=== PATIENT | female | born 1950 | race Caucasian/White ===

== ENCOUNTER 2024-02-01 18:48 | Inpatient (IN) ==
--- NOTE | 2024-02-01 19:10 | XRay Report ---
XR chest 1V portable HISTORY: Shortness of breath. Chest pain, nonspecific COMPARISON: Chest 12/22/2023. FINDINGS: There are low lung volumes. No pneumothorax. The cardiac silhouette remains mildly enlarged . There are suture material within the right upper lobe again noted. Thoracic spinal fusion hardware. Mild chronic interstitial thickening persists. No evidence for pulmonary edema. There are surgical c lips overlying the right hilum. Patchy bibasilar densities persist. IMPRESSION: 1. Stable cardiomegaly. 2. Postoperative changes again noted within the right lung. 3. Patchy bibasilar densities persist. This could represent scarring or atelectasis. A superimposed p neumonia would be difficult to exclude. ACT 112: Negative or not required by law. Electronically signed by: Imtiaz Dunn M.D. 02/01/2024 7:09 PM
[2024-02-01] MEDS: methylPREDNISolone 125 MG/2 ML VIAL IV STA ×3 (19:17→22:24)
[2024-02-01 19:22] LABS: iSTAT Creatinine 0.8 mg/dl (0.6-1.3); iSTAT Ionized Calcium 1.24 mmol/l (1.12-1.32); iSTAT Potassium 3.7 mmol/L (3.3-5.0)
[2024-02-01 19:25] LABS: Base Excess VBG 7.7 mEq/L; HCO3 VBG 38 mmol/L; Oxygen Saturation VBG < 60.0 %; PCO2 VBG 85 mmHg (38-50); PO2 VBG 27 mmHg; pH VBG 7.26 (7.36-7.41)
--- NOTE | 2024-02-01 19:28 | Emergency Department Note ---
Impression & Plan Acute hypoxic respiratory failure, Acute exacerbation of chronic obstructive airways disease, Rhinovirus ED Provider Note NAME: JO ANN UGARTE AGE: 73 SEX: F : 1950 ARRIVES VIA: Walk-In INFORMANT: Patient ED PROVIDER(S): Jesse Cerda DO CHIEF COMPLAINT: shortness of breath HPI: Patient is a 73-year-old female who presents to the ER for cough and congestion which started several days ago. She notes that it has been getting worse for the past 2 days. She has become more short of breath over the past two days. Family notes that she was a little confused on Saturday but that has resolved. She was significant more short of breath today and weak and consequently they brought her in. Patient does chronically wear oxygen. She denies any headache or change in vision. No chest pain but does admit to shortness of breath. No belly pain. No nausea, vomiting, or diarrhea. ADDITIONAL HISTORY OBTAINED: Per HPI Chronic Medical/Social Conditions Affecting Care: Per HPI PAST MEDICAL HISTORY:See Below PAST SURGICAL HISTORY:See Below FAMILY HISTORY:See Below SOCIAL HISTORY:See Below HOME MEDICATIONS:See Below ALLERGIES:See Below VITALS:See Below PHYSICAL EXAMINATION: GENERAL: Sitting up in bed, alert, ill-appearing, dyspneic with conversation EYE EXAM: normal conjunctiva. OROPHARYNX: no exudate, no erythema, lips, buccal mucosa, and tongue normal and mucous membranes are moist NECK: supple, no nuchal rigidity, no adenopathy, non-tender LUNGS: Wheezing bilaterally. Normal chest wall mechanics HEART: no murmurs, S1 normal and S2 normal ABDOMEN: abdomen soft, non-tender, normo-active bowel sounds, no masses, no rebound or guarding. UPPER EXTREMITIES: upper extremities are grossly normal. LOWER EXTREMITIES: No pitting edema. Calves are equal bilaterally NEURO EXAM: Normal sensorium, cranial nerves II-XII grossly intact, normal speech, no gross weakness of arms, no gross weakness of legs. MEDICAL DECISION MAKING: Patient is a 73-year-old female who presents ER brought in by family. Upon arrival she was found to be in respiratory distress was hypoxic with pulse ox in the 70s. She was brought in to be 1. Placed on BiPAP. IV was established blood work was obtained. Labs show no significant leukocytosis or anemia. VBG with a pH 7.26 and a CO2 85. BMP was fairly unremarkable. LFTs bilirubin was unremarkable. Troponin was negative. Pro-Alphonse normal. Viral panel was negative with exception of rhinovirus. She was covered with IV antibiotics including azithromycin and Rocephin and steroids. She improved on BiPAP. Case was discussed with the hospitalist admitted for further workup. Consults/Care Managements Discussions: Per [facility] Triage Nursing notes reviewed. Limited review of prior medical records performed Vital Signs: reviewed and remarkable for tachycardic and hypoxic Differential diagnosis: Differential diagnoses includes but is not limited to pneumonia, bronchitis, COPD/Asthma exacerbation, pneumothorax, pulmonary embolism, congestive heart failure, acute coronary syndrome ER treatment provided: See below Diagnostics interpreted by me include EKG and cardiac monitoring as listed below: -Cardiac Monitoring: An order was placed for continuous cardiac monitoring. The monitor shows a rate of 110 with sinus rhythm. -ECG: Sinus rhythm 4112 Normal axis No PVCs QTc 434 -Laboratory studies:Interpreted by me as stated above in MDM and shown below. Imaging studies: Xrays: As interpreted by me: Portable AP upright 1 view of the chest shows opacities in the bilateral bases CTs show: none Procedures:none Critical Care: I have personally spent 45 minutes of critical care time in the direct management of this patient. This includes bedside care, interpretation of diagnostic studies, and testing, discussion with consultants, patient, and family members, and other required patient management activities. This 45 minutes is in excess of all separately billable procedures. Past Med/Surg History Problem List (Updated 02/01/24 @ 22:15 by Jesse Cerda DO) Rhinovirus (Acute) Acute exacerbation of chronic obstructive airways disease (Acute) Acute hypoxic respiratory failure (Acute) Medical History (Updated 02/01/24 @ 22:15 by Jesse Cerda DO) Back pain, chronic Traumatic brain injury Lung cancer Surgical History (Updated 02/01/24 @ 19:23 by Bianca Bauer) History of lobectomy of lung Social History Smoking Status: Former smoker Preferred Language: Chinese Feels Safe at Home: Yes Allergies Allergies Allergy/AdvReac Type Severity Reaction Status Date / Time adhesive tape Allergy Mild Redness of Verified 02/01/24 19:35 Skin cyclobenzaprine Allergy Mild Blister Verified 02/01/24 19:35 [From Flexeril] amitriptyline [From avil] AdvReac Intermediate Hallucinati Verified 02/01/24 19:35 ng aspirin AdvReac Intermediate Abdominal Verified 02/01/24 19:35 Pain morphine AdvReac Intermediate Hallucinati Verified 02/01/24 19:35 ng Home Meds Home Medications Medication Instructions Recorded Confirmed Unknown Antibiotic 1 dose PO BID 02/01/24 02/01/24 acetaminophen 650 mg 650 - 1,300 mg PO DIRECTED PRN 02/01/24 02/01/24 tablet,extended release Pain albuterol sulfate 2.5 mg/3 mL 2.5 mg inhalation DIRECTED PRN 02/01/24 02/01/24 (0.083 %) solution for nebulization Shortness Of Breath Or Wheezing albuterol sulfate 90 mcg/actuation 2 puff inhalation .Q4-6HR PRN 02/01/24 02/01/24 aerosol inhaler Shortness Of Breath Or Wheezing alprazolam 0.5 mg tablet 0.5 mg PO TID PRN Anxiety 02/01/24 02/01/24 fluticasone fur. 100 mcg-umeclid 1 inh inhalation DAILY 02/01/24 02/01/24 62.5 mcg-vilant 25 mcg inhalat.powder (Trelegy Ellipta) fluticasone propionate 50 1 spray intranasal DAILY PRN 02/01/24 02/01/24 mcg/actuation nasal Congestion spray,suspension oxycodone 10 mg tablet 10 mg PO QID PRN Pain 02/01/24 02/01/24 oxycodone myristate 36 mg capsule 36 mg PO Q12H 02/01/24 02/01/24 sprinkle extended release 12hr(DON'T CRUSH) (Xtampza ER) valsartan 80 1 tab PO DAILY 02/01/24 02/01/24 mg-hydrochlorothiazide 12.5 mg tablet (Diovan HCT) Results & Data (ED) Vital Signs Vital Signs - 24 hr 02/01/24 18:49 02/01/24 18:50 02/01/24 19:00 Temperature Source Temporal Artery Scan Pulse Rate 129 H 111 H Pulse Rate [Apical] Pulse Rate from SpO2 Sensor Respiratory Rate 19 Respiratory Effort / Characteristics Respiratory Depth Respiratory Pattern Blood Pressure 152/51 H Blood Pressure [Right Arm] Blood Pressure Mean 84 Blood Pressure Mean [Right Arm] Pulse Oximetry 79 L 79 L Oxygen Delivery Method Nasal Cannula Nasal Cannula [place] Oxygen Flow Rate 5 5 Fraction of Inspired Oxygen Sepsis Recent Fever Within 48 Hours No Sepsis New/Unexplained Change in Mental Status N/A Sepsis Action Taken by Nursing No Action Required Oxygen Flow Rate - Titration 15 Pulse Oximetry Post Tiitration 84 L 02/01/24 19:02 02/01/24 19:26 02/01/24 19:35 Temperature Source Pulse Rate 111 H Pulse Rate [Apical] 112 H Pulse Rate from SpO2 Sensor 113 H Respiratory Rate 32 H Respiratory Effort / Characteristics Accessory Muscle Use Respiratory Depth Respiratory Pattern Blood Pressure Blood Pressure [Right Arm] 128/81 Blood Pressure Mean Blood Pressure Mean [Right Arm] 96 Pulse Oximetry 97 99 Oxygen Delivery Method BiPAP BiPAP BiPAP Oxygen Flow Rate Fraction of Inspired Oxygen Sepsis Recent Fever Within 48 Hours Sepsis New/Unexplained Change in Mental Status Sepsis Action Taken by Nursing Oxygen Flow Rate - Titration Pulse Oximetry Post Tiitration 02/01/24 20:00 02/01/24 20:01 02/01/24 20:03 Temperature Source Pulse Rate 116 H 116 H Pulse Rate [Apical] 116 H Pulse Rate from SpO2 Sensor Respiratory Rate 28 H 30 H 28 H Respiratory Effort / Characteristics Spontaneous Labored Short of Breath Spontaneous Labored Short of Breath Respiratory Depth Normal Respiratory Pattern Tachypnea Blood Pressure Blood Pressure [Right Arm] Blood Pressure Mean Blood Pressure Mean [Right Arm] Pulse Oximetry 96 100 96 Oxygen Delivery Method BiPAP BiPAP Oxygen Flow Rate Fraction of Inspired Oxygen 40 40 Sepsis Recent Fever Within 48 Hours Sepsis New/Unexplained Change in Mental Status Sepsis Action Taken by Nursing Oxygen Flow Rate - Titration Pulse Oximetry Post Tiitration 02/01/24 20:22 02/01/24 20:30 02/01/24 21:00 Temperature Source Pulse Rate 115 H 115 H 113 H Pulse Rate [Apical] Pulse Rate from SpO2 Sensor 115 H 113 H Respiratory Rate 37 H Respiratory Effort / Characteristics Spontaneous Labored Short of Breath Respiratory Depth Respiratory Pattern Tachypnea Blood Pressure 144/73 H 108/74 Blood Pressure [Right Arm] Blood Pressure Mean 96 85 Blood Pressure Mean [Right Arm] Pulse Oximetry 96 97 95 Oxygen Delivery Method BiPAP BiPAP Oxygen Flow Rate Fraction of Inspired Oxygen 40 Sepsis Recent Fever Within 48 Hours Sepsis New/Unexplained Change in Mental Status Sepsis Action Taken by Nursing Oxygen Flow Rate - Titration Pulse Oximetry Post Tiitration 02/01/24 21:30 02/01/24 22:00 Temperature Source Pulse Rate 105 H Pulse Rate [Apical] Pulse Rate from SpO2 Sensor 105 H 104 H Respiratory Rate 28 H 26 H Respiratory Effort / Characteristics Respiratory Depth Respiratory Pattern Blood Pressure 133/64 119/62 Blood Pressure [Right Arm] Blood Pressure Mean 87 81 Blood Pressure Mean [Right Arm] Pulse Oximetry 96 96 Oxygen Delivery Method BiPAP BiPAP Oxygen Flow Rate Fraction of Inspired Oxygen Sepsis Recent Fever Within 48 Hours Sepsis New/Unexplained Change in Mental Status Sepsis Action Taken by Nursing Oxygen Flow Rate - Titration Pulse Oximetry Post Tiitration Laboratory Data 02/01/24 19:06 02/01/24 19:06 Lab Results 02/01/24 02/01/24 02/01/24 Range/Units 19:06 19:07 19:10 WBC 9.04 (4.8-10.8) K/ul RBC 4.38 (4.20-5.40) M/uL Hgb 13.2 (12.0-16.0) g/dl POC Hgb 15.0 (12.0-16.0) g/dl Hct 42.5 (37.0-47.0) % POC Hct 44 (37-47) % MCV 97.0 (80.0-100.0) fL MCH 30.1 (25.0-34.0) pg MCHC 31.1 L (32.0-36.0) g/dL RDW Std Deviation 44.9 (36.4-46.3) fL RDW Coeff of Sadi 12.4 (11.5-14.5) % Plt Count 291 (130-400) K/uL MPV 9.3 L (9.4-12.4) fL Immature Gran % (Auto) 0.4 % Neut % (Auto) 75.5 % Lymph % (Auto) 7.7 % [place] % (Auto) 15.8 % Eos % (Auto) 0.2 % Baso % (Auto) 0.4 % Neut # (Auto) 6.81 H (1.40-6.50) K/uL Lymph # (Auto) 0.70 L (1.20-3.40) K/uL [place] # (Auto) 1.43 H (0.11-0.59) K/uL Eos # (Auto) 0.02 (0.00-0.50) K/uL Baso # (Auto) 0.04 (0.00-0.20) K/uL Immature Gran # (Auto) 0.04 (0.01-0.20) K/uL Toxic Vacuolation 2+ VBG pH 7.26 L (7.36-7.41) VBG pCO2 85 H (38-50) mmHg VBG pO2 27 mmHg VBG HCO3 38 mmol/L VBG O2 Saturation < 60.0 % VBG Base Excess 7.7 mEq/L POC Sodium 140 (135-144) mmol/L Sodium 138 (136-145) mmol/L POC Potassium 3.7 (3.3-5.0) mmol/L Potassium 3.7 (3.5-5.1) mmol/L POC Chloride 93 L (101-112) mmol/L Chloride 93 L (98-107) mmol/L Carbon Dioxide 37 H (21-32) mmol/L POC Total CO2 38 H (24-31) mmol/L Anion Gap 8 (3-11) POC Anion Gap 14.0 L (16-25) mmol/L POC BUN 36 H (7-18) mg/dl BUN 37 H (6-23) mg/dl Creatinine 0.84 (0.6-1.2) mg/dl POC Creatinine 0.8 (0.6-1.3) mg/dl Est Cr Clr Drug Dosing 58.2 ml/min Est GFR ( Amer) 81.0 ml/min Est GFR (Non-Af Amer) 69.9 ml/min BUN/Creatinine Ratio 44.0 H (10-20) Glucose 173 H (70-99(Fasting)) mg/dl POC Glucose (other) 183 H (70-99) mg/dl Lactate (0.4-2.0) mmol/L Calcium 10.4 H (8.6-10.3) mg/dl POC Ioniz Calcium Jose Angel 1.24 (1.12-1.32) mmol/l Total Bilirubin 0.5 (0.2-1.0) mg/dl AST 19 (13-39) U/L ALT 14 (7-52) U/L Alkaline Phosphatase 78 (34-104) U/L Troponin I High Sens 9.1 (0-14) pg/ml B-Natriuretic Peptide 39 (0-100) pg/ml Total Protein 8.5 H (6.0-8.3) gm/dl Albumin 4.2 (3.4-5.0) gm/dl Globulin 4.3 H (2.5-4.0) gm/dl Albumin/Globulin Ratio 1.0 (0.9-2) Lipase 18 (11-82) U/L Procalcitonin 0.31 (0-0.5) ng/ml Adenovirus (PCR) Not Detected (NotDetected) B. pertussis DNA (PCR) Not Detected (NotDetected) B.parapertussis DNA PCR Not Detected (NotDetected) C. pneumoniae DNA (PCR) Not Detected (NotDetected) Coronavirus OC43 (PCR) Not Detected (NotDetected) Coronavirus HKU1 (PCR) Not Detected (NotDetected) Coronavirus 229E (PCR) Not Detected (NotDetected) SARS-CoV-2 (PCR) Not Detected (NotDetected) Coronavirus NL63 (PCR) Not Detected (NotDetected) Human Metapneumovir PCR Not Detected (NotDetected) Influenza Type A (PCR) Not Detected (NotDetected) Influenza Type B (PCR) Not Detected (NotDetected) M. pneumoniae (PCR) Not Detected (NotDetected) Parainfluenza 1 (PCR) Not Detected (NotDetected) Parainfluenza 2 (PCR) Not Detected (NotDetected) Parainfluenza 3 (PCR) Not Detected (NotDetected) Parainfluenza 4 (PCR) Not Detected (NotDetected) RSV (PCR) Not Detected (NotDetected) Entero/Rhino (PCR) DETECTED A (NotDetected) 02/01/24 Range/Units 19:45 WBC (4.8-10.8) K/ul RBC (4.20-5.40) M/uL Hgb (12.0-16.0) g/dl POC Hgb (12.0-16.0) g/dl Hct (37.0-47.0) % POC Hct (37-47) % MCV (80.0-100.0) fL MCH (25.0-34.0) pg MCHC (32.0-36.0) g/dL RDW Std Deviation (36.4-46.3) fL RDW Coeff of Sadi (11.5-14.5) % Plt Count (130-400) K/uL MPV (9.4-12.4) fL Immature Gran % (Auto) % Neut % (Auto) % Lymph % (Auto) % [place] % (Auto) % Eos % (Auto) % Baso % (Auto) % Neut # (Auto) (1.40-6.50) K/uL Lymph # (Auto) (1.20-3.40) K/uL [place] # (Auto) (0.11-0.59) K/uL Eos # (Auto) (0.00-0.50) K/uL Baso # (Auto) (0.00-0.20) K/uL Immature Gran # (Auto) (0.01-0.20) K/uL Toxic Vacuolation VBG pH (7.36-7.41) VBG pCO2 (38-50) mmHg VBG pO2 mmHg VBG HCO3 mmol/L VBG O2 Saturation % VBG Base Excess mEq/L POC Sodium (135-144) mmol/L Sodium (136-145) mmol/L POC Potassium (3.3-5.0) mmol/L Potassium (3.5-5.1) mmol/L POC Chloride (101-112) mmol/L Chloride (98-107) mmol/L Carbon Dioxide (21-32) mmol/L POC Total CO2 (24-31) mmol/L Anion Gap (3-11) POC Anion Gap (16-25) mmol/L POC BUN (7-18) mg/dl BUN (6-23) mg/dl Creatinine (0.6-1.2) mg/dl POC Creatinine (0.6-1.3) mg/dl Est Cr Clr Drug Dosing ml/min Est GFR ( Amer) ml/min Est GFR (Non-Af Amer) ml/min BUN/Creatinine Ratio (10-20) Glucose (70-99(Fasting)) mg/dl POC Glucose (other) (70-99) mg/dl Lactate 1.2 (0.4-2.0) mmol/L Calcium (8.6-10.3) mg/dl POC Ioniz Calcium Jose Angel (1.12-1.32) mmol/l Total Bilirubin (0.2-1.0) mg/dl AST (13-39) U/L ALT (7-52) U/L Alkaline Phosphatase (34-104) U/L Troponin I High Sens (0-14) pg/ml B-Natriuretic Peptide (0-100) pg/ml Total Protein (6.0-8.3) gm/dl Albumin (3.4-5.0) gm/dl Globulin (2.5-4.0) gm/dl Albumin/Globulin Ratio (0.9-2) Lipase (11-82) U/L Procalcitonin (0-0.5) ng/ml Adenovirus (PCR) (NotDetected) B. pertussis DNA (PCR) (NotDetected) B.parapertussis DNA PCR (NotDetected) C. pneumoniae DNA (PCR) (NotDetected) Coronavirus OC43 (PCR) (NotDetected) Coronavirus HKU1 (PCR) (NotDetected) Coronavirus 229E (PCR) (NotDetected) SARS-CoV-2 (PCR) (NotDetected) Coronavirus NL63 (PCR) (NotDetected) Human Metapneumovir PCR (NotDetected) Influenza Type A (PCR) (NotDetected) Influenza Type B (PCR) (NotDetected) M. pneumoniae (PCR) (NotDetected) Parainfluenza 1 (PCR) (NotDetected) Parainfluenza 2 (PCR) (NotDetected) Parainfluenza 3 (PCR) (NotDetected) Parainfluenza 4 (PCR) (NotDetected) RSV (PCR) (NotDetected) Entero/Rhino (PCR) (NotDetected) Administered Medications Discontinued Medications Albuterol (Albut/Ipratrop 3mg/0.5mg Neb 3 Ml Vial) 12 ml NEB ONE ONE; Protocol Stop: 02/01/24 18:59 Last Admin: 02/01/24 19:35 Dose: 12 ml Documented By: ARLETH Ceftriaxone Sodium (Rocephin) 2,000 mg in 50 mls @ 100 mls/hr IV NOW STA Stop: 02/01/24 19:28 Last Infusion: 02/01/24 20:30 Dose: Infused Documented By: Admin: 02/01/24 19:47 Dose: 100 mls/hr Documented By: ARLETH Azithromycin 500 mg/ Dextrose 255 mls @ 125 mls/hr IV NOW ONE Stop: 02/01/24 21:01 Last Infusion: 02/01/24 22:07 Dose: Infused Documented By: Admin: 02/01/24 19:47 Dose: 125 mls/hr Documented By: ARLETH Ioversol (Optiray 320 125ml) 121 ml IV ONCE ONE Stop: 02/01/24 21:58 Last Admin: 02/01/24 21:57 Dose: 121 ml Documented By: RD Methylprednisolone (Methylprednisolone 125 Mg/2 Ml Vial) 40 mg IV NOW STA Stop: 02/01/24 18:59 Last Admin: 02/01/24 19:17 Dose: 40 mg Documented By: ARLETH Methylprednisolone (Methylprednisolone 125 Mg/2 Ml Vial) 40 mg IV NOW STA Stop: 02/01/24 21:01 Last Admin: 02/01/24 21:37 Dose: 40 mg Documented By: ARLETH Miscellaneous (Rapid Sequence Induction Bag) Confirm Administered Dose 1 each N/A .STK-MED ONE Stop: 02/01/24 18:54 Last Admin: 02/01/24 19:57 Dose: Not Given Documented By: ARLETH Imaging Data Radiologist's Impression: Chest X-Ray 02/01/24 18:54 XR chest 1V portable HISTORY: Shortness of breath. Chest pain, nonspecific COMPARISON: Chest 12/22/2023. FINDINGS: There are low lung volumes. No pneumothorax. The cardiac silhouette remains mildly enlarged. There are suture material within the right upper lobe again noted. Thoracic spinal fusion hardware. Mild chronic interstitial thickening persists. No evidence for pulmonary edema. There are surgical clips overlying the right hilum. Patchy bibasilar densities persist. IMPRESSION: 1. Stable cardiomegaly. 2. Postoperative changes again noted within the right lung. 3. Patchy bibasilar densities persist. This could represent scarring or atelectasis. A superimposed pneumonia would be difficult to exclude. ACT 112: Negative or not required by law. Electronically signed by: Imtiaz Dunn M.D. 02/01/2024 7:09 PM Discharge Plan Visit Data Chief Complaint: Shortness of Breath/Dyspnea Stated Complaint: SOB ED Provider: Jesse Cerda Discharge Problem: Acute hypoxic respiratory failure, Acute exacerbation of chronic obstructive airways disease, Rhinovirus Forms Stand Alone Forms: My [facility] [employer] Prescriptions Prescriptions: No Action albuterol sulfate 2.5 mg /3 mL (0.083 %) solution for nebulization 2.5 mg inhalation DIRECTED PRN (Reason: Shortness Of Breath Or Wheezing) acetaminophen [Tylenol Arthritis] 650 mg Tablet Extended Release 650 - 1,300 mg PO DIRECTED PRN (Reason: Pain) valsartan-hydrochlorothiazide [Diovan HCT] 80-12.5 mg tablet 1 tab PO DAILY alprazolam 0.5 mg tablet 0.5 mg PO TID PRN (Reason: Anxiety) albuterol sulfate 90 mcg/actuation HFA aerosol inhaler 2 puff INHALATION .Q4-6HR PRN (Reason: Shortness Of Breath Or Wheezing) fluticasone propionate [Flonase] 50 mcg/actuation [place],Suspension 1 spray INTRANASAL DAILY PRN (Reason: Congestion) Rx Instructions: administer into each nostril oxycodone 10 mg tablet 10 mg PO QID PRN (Reason: Pain) Xtampza ER 36 mg cap,sprinkl,ER12hr(DONT CRUSH) 36 mg PO Q12H Trelegy Ellipta 100-62.5-25 mcg Blister With Device 1 inh INHALATION DAILY Unknown Antibiotic 1 dose PO BID Rx Instructions: PT UNSURE OF NAME, STRENGTH OR DOSE, PER PT "ONLY TOOK 2 DOSES, THEN QUIT TAKING". UNABLE TO VERIFY MEDICATION Referrals Referrals: Mic Qureshi MD [Primary Care Provider] -
[2024-02-01 19:31] LABS: Hematocrit (blood only) 42.5 % (37.0-47.0); Hemoglobin 13.2 g/dl (12.0-16.0); Mean Corpuscular Hemoglobin 30.1 pg (25.0-34.0); Mean Corpuscular Hgb Conc 31.1 g/dL (32.0-36.0); Mean Platelet Volume 9.3 fL (9.4-12.4); Platelet Count 291 K/uL (130-400); RDW Coefficient of Variation 12.4 % (11.5-14.5); RDW Standard Deviation 44.9 fL (36.4-46.3); Red Blood Count 4.38 M/uL (4.20-5.40); White Blood Count 9.04 K/ul (4.8-10.8)
[2024-02-01] MEDS: ALBUT/IPRATROP 3MG/0.5MG NEB 3 ML VIAL NEB ONE (19:35)
[2024-02-01] MEDS: AZITHROMYCIN 500 MG in DEXTROSE 5% 250 ML IV ONE (19:47)
[2024-02-01] MEDS: cefTRIAXone SODIUM 2,000 MG/50 ML BAG IV STA (19:47)
[2024-02-01 19:48] LABS: Albumin Level 4.2 gm/dl (3.4-5.0); Bilirubin,Total 0.5 mg/dl (0.2-1.0); Calcium 10.4 mg/dl (8.6-10.3); Creatinine Clr Calc Pharmacy 58.2 ml/min; Est GFR (Non-African American) 69.9 ml/min; Globulin 4.3 gm/dl (2.5-4.0); Potassium 3.7 mmol/L (3.5-5.1); Total Protein 8.5 gm/dl (6.0-8.3)
[2024-02-01 19:49] LABS: Basophils # (auto) 0.04 K/uL (0.00-0.20); Basophils % (auto) 0.4 %; Eosinophils # (auto) 0.02 K/uL (0.00-0.50); Eosinophils % (auto) 0.2 %; Immature Granulocytes # (auto) 0.04 K/uL (0.01-0.20); Immature Granulocytes % (auto) 0.4 %; Lymphocytes % (auto) 7.7 %; Monocytes # (auto) 1.43 K/uL (0.11-0.59); Monocytes % (auto) 15.8 %; Neutrophils # (auto) 6.81 K/uL (1.40-6.50); Neutrophils % (auto) 75.5 %; Toxic Vacuolation 2+
[2024-02-01 19:55] LABS: Troponin I High Sensitivity 9.1 pg/ml (0-14)
[2024-02-01] MEDS: RAPID SEQUENCE INDUCTION BAG ONE (19:57)
[2024-02-01 20:16] LABS: Adenovirus PCR Not Detected (NotDetected); Bordetella parapertussis PCR Not Detected (NotDetected); Bordetella pertussis PCR Not Detected (NotDetected); Chlamydia pneumoniae PCR Not Detected (NotDetected); Coronavirus 229E PCR Not Detected (NotDetected); Coronavirus CoV-2 (COVID19)PCR Not Detected (NotDetected); Coronavirus HKU1 PCR Not Detected (NotDetected); Coronavirus NL63 PCR Not Detected (NotDetected); Coronavirus OC43PCR Not Detected (NotDetected); Human Metapneumovirus PCR Not Detected (NotDetected); Influenza A PCR Not Detected (NotDetected); Influenza B PCR Not Detected (NotDetected); Mycoplasma pneumoniae PCR Not Detected (NotDetected); Parainfluenza Virus 1 PCR Not Detected (NotDetected); Parainfluenza Virus 2 PCR Not Detected (NotDetected); Parainfluenza Virus 3 PCR Not Detected (NotDetected); Parainfluenza Virus 4 PCR Not Detected (NotDetected); Respiratory Syncytial VirusPCR Not Detected (NotDetected); Rhinovirus/Enterovirus PCR DETECTED (NotDetected)
[2024-02-01] MEDS: OPTIRAY 320 125ml IV ONE (21:57)
[2024-02-01] MEDS ORDERED: NITROGLYCERIN SL 0.4 MG/TAB TAB SL PRN (22:48)
[2024-02-01] MEDS ORDERED: POLYETHYLENE (MIRALAX) 17 GM PACK PO PRN (22:48)
[2024-02-01] MEDS ORDERED: ALBUTEROL HFA 8 GM INHALER INH PRN (22:48)
[2024-02-01] MEDS ORDERED: FLUTICASONE PROPIONATE NA SPR 16 GM BTL NAE PRN (22:48)
[2024-02-01] MEDS: FORMOTEROL 20 MCG/2 ML VIAL NEB STA (22:52)
[2024-02-01] MEDS: ALBUT/IPRATROP 3MG/0.5MG NEB 3 ML VIAL NEB SCH (22:52)
[2024-02-01] MEDS: BUDESONIDE 0.5 MG/2 ML VIAL (PULMICORT) NEB STA (22:52)
--- NOTE | 2024-02-01 23:17 | CT Scan Report ---
Exam(s): CTA CHEST IV Amt: OPTIRAY 320 121ML EXAM: CT Angiography Chest With Intravenous Contrast CLINICAL HISTORY: Reason for exam: PE. TECHNIQUE: Axial computed tomographic angiography images of the chest with intravenous contrast. CTDI is 52.15 mGy and DLP is 839.03 mGy-cm. Automated exposure control was utilized for the study. A dose lowering technique was utilized adhering to the principles of ALARA. MIP reconstructed images were created and reviewed. COMPARISON: None. FINDINGS: Pulmonary arteries: See below. Aorta: Calcified atherosclerotic disease of aorta with no aneurysm or dissection. Normal enhancement of the pulmonary arteries with no filling defect to suggest pulmonary embolus. Upper abdomen reveals postoperative changes in the anterior aspect of the upper abdominal aorta. Remainder of the visualized upper abdominal structures are unremarkable. Lungs: Right lower lobe consolidation suggestive of infiltrate. Mild biapical scarring with atelectasis along with right suprahilar reticulonodular prominence which may indicate a gestational lung disease versus pneumonitis. Mild lingular and left lower lobe atelectasis. Pleural space: Unremarkable. No significant effusion. No pneumothorax. Heart: Unremarkable. No cardiomegaly. No significant pericardial effusion. No evidence of RV dysfunction. Normal cardiac size with coronary artery calcifications. Bones/joints: Posterior fusion through the mid lower thoracic spine. Diffuse osteoporosis with vertebroplasty is the T12, L1 and L2 levels. Compression fracture of T11 with wedging of multiple vertebral bodies throughout the mid-lower thoracic spine. Severe degenerative disease of the left shoulder. No dislocation. Soft tissues: Unremarkable. Lymph nodes: Mild fullness of a right hilar lymph node up to 1.6 x 1.5 cm which may indicate mild lymphadenopathy. Otherwise unremarkable mediastinum and left hilar region. Adrenals: Left adrenal nodule measuring 1.5 x 1.3 cm. IMPRESSION: 1. No pulmonary embolus or aortic dissection. 2. Possible residual infiltrate in the right lower lobe with interstitial lung disease versus pneumonitis involving the right upper lobe. Multifocal multilobar pneumonitis. Possible mild right hilar lymphadenopathy of indeterminate etiology and possibly nonspecific inflammatory response. Electronically signed by: Melina Francisco MD 02/01/24 23:16 PM
[2024-02-01 23:46] LABS: iSTAT Arterial Blood Gas HCO3 39 meg/L (19-24); iSTAT Arterial Blood Gas pCO2 74 mmHg (35-46); iSTAT Arterial Blood Gas pH 7.32 (7.35-7.45); iSTAT Arterial Blood Gas pO2 81 mmHg (80-95); iSTAT Carbon Dioxide > 40 mmol/L (24-31); iSTAT Hematocrit 35 % (37-47); iSTAT Hemoglobin 11.9 g/dl (12.0-16.0); iSTAT Potassium 3.8 mmol/L (3.3-5.0); iSTAT Sodium 135 mmol/L (135-144)
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
[2024-02-02] MEDS: PIPER/TAZO 4.5g in D5W MINI-B 100 ML IV STA (00:46)
[2024-02-02] MEDS: SODIUM CHLORIDE 0.9% 1,000 ML IV SCH (01:12)
[2024-02-02] MEDS: PIPERACILLIN/TAZOBACTAM 4.5 GM in DEXTROSE 5% MINI-B 100 ML IV SCH (05:34)
[2024-02-02 05:41] LABS: Base Excess VBG 8.7 mEq/L; HCO3 VBG 37 mmol/L; Oxygen Saturation VBG < 60.0 %; PCO2 VBG 71 mmHg (38-50); PO2 VBG 26 mmHg; pH VBG 7.33 (7.36-7.41)
[2024-02-02 05:49] LABS: Basophils # (auto) 0.05 K/uL (0.00-0.20); Basophils % (auto) 0.8 %; Hematocrit (blood only) 35.7 % (37.0-47.0); Hemoglobin 11.2 g/dl (12.0-16.0); Immature Granulocytes # (auto) 0.04 K/uL (0.01-0.20); Immature Granulocytes % (auto) 0.6 %; Lymphocytes # (auto) 0.62 K/uL (1.20-3.40); Lymphocytes % (auto) 9.4 %; Mean Corpuscular Hemoglobin 30.1 pg (25.0-34.0); Mean Corpuscular Hgb Conc 31.4 g/dL (32.0-36.0); Mean Platelet Volume 9.7 fL (9.4-12.4); Monocytes # (auto) 0.36 K/uL (0.11-0.59); Monocytes % (auto) 5.4 %; Neutrophils # (auto) 5.56 K/uL (1.40-6.50); Neutrophils % (auto) 83.8 %; Platelet Count 222 K/uL (130-400); RDW Coefficient of Variation 12.5 % (11.5-14.5); RDW Standard Deviation 43.8 fL (36.4-46.3); Red Blood Count 3.72 M/uL (4.20-5.40); White Blood Count 6.63 K/ul (4.8-10.8)
[2024-02-02 06:03] LABS: BUN Creatinine Ratio 39.6 (10-20); Calcium 9.7 mg/dl (8.6-10.3); Creatinine Clr Calc Pharmacy 48.4 ml/min; Est GFR (African American) 64.9 ml/min; Magnesium 2.2 mg/dl (1.7-2.4); Potassium 4.1 mmol/L (3.5-5.1)
[2024-02-02] MEDS: BUDESONIDE 0.5 MG/2 ML VIAL (PULMICORT) NEB SCH (07:16)
[2024-02-02] MEDS: FORMOTEROL 20 MCG/2 ML VIAL NEB SCH (07:16)
[2024-02-02] MEDS: ENOXAPARIN INJ 40 MG/0.4 ML SYR SQ SCH (07:49)
[2024-02-02] MEDS: hydroCHLOROthiazide 25 MG TAB PO SCH (07:50)
[2024-02-02] MEDS: methylPREDNISolone 40 MG in SYRINGE 0 ML IV SCH (07:50)
[2024-02-02] MEDS: VALSARTAN 80 MG TAB PO SCH (07:51)
[2024-02-02] MEDS: UMECLIDINIUM/VILANTEROL 62.5/25MCG 7 PUFFS/INHALER INH SCH (07:51)
[2024-02-02] MEDS: FLUTICASONE FUROATE 100MCG 14 PUFFS/INHALER INH SCH (07:52)
[2024-02-02] MEDS ORDERED: methylPREDNISolone 125 MG/2 ML VIAL IV SCH (09:00)
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
[2024-02-02] MEDS: ACETAMINOPHEN 325 MG TAB PO PRN (16:39)
[2024-02-02] MEDS: ALPRAZolam 0.5 MG TABLET PO PRN (16:39)
[2024-02-02] MEDS ORDERED: cefTRIAXone SODIUM 2,000 MG/50 ML BAG IV SCH (18:00)
[2024-02-02] MEDS ORDERED: AZITHROMYCIN 500 MG in DEXTROSE 5% 250 ML IV SCH (19:00)
--- NOTE | 2024-02-02 21:21 | Electrocardiogram Report ---
Test Reason : Blood Pressure : / mmHG Vent. Rate : 112 BPM Atrial Rate : 112 BPM P-R Int : 116 ms QRS Dur : 078 ms QT Int : 318 ms P-R-T Axes : 061 067 044 degrees QTc Int : 434 ms Sinus tachycardia Otherwise normal ECG No previous ECGs available Confirmed by Kamran Solomon ([id number]) on 02/02/2024 9:20:33 PM Referred By: REFERRED SELF Confirmed By:Kamran Solomon
[2024-02-02] MEDS: AZITHROMYCIN 250 MG in DEXTROSE 5% 250 ML IV SCH (21:23)
[2024-02-03 05:38] LABS: Base Excess VBG 16.9 mEq/L; HCO3 VBG 43 mmol/L; Oxygen Saturation VBG 90.1 %; PCO2 VBG 55 mmHg (38-50); PO2 VBG 55 mmHg
[2024-02-03 05:45] LABS: Hematocrit (blood only) 34.7 % (37.0-47.0); Hemoglobin 10.7 g/dl (12.0-16.0); Mean Corpuscular Hemoglobin 29.4 pg (25.0-34.0); Mean Corpuscular Hgb Conc 30.8 g/dL (32.0-36.0); Mean Corpuscular Volume 95.3 fL (80.0-100.0); Mean Platelet Volume 9.6 fL (9.4-12.4); Platelet Count 283 K/uL (130-400); RDW Coefficient of Variation 12.6 % (11.5-14.5); RDW Standard Deviation 43.8 fL (36.4-46.3); Red Blood Count 3.64 M/uL (4.20-5.40); White Blood Count 9.28 K/ul (4.8-10.8)
[2024-02-03 06:04] LABS: BUN Creatinine Ratio 57.3 (10-20); Calcium 9.2 mg/dl (8.6-10.3); Creatinine Clr Calc Pharmacy 65.2 ml/min; Est GFR (African American) 92.9 ml/min; Est GFR (Non-African American) 80.2 ml/min; Magnesium 2.3 mg/dl (1.7-2.4); Phosphorus 2.8 mg/dl (2.5-4.9); Potassium 3.8 mmol/L (3.5-5.1)
[2024-02-03 07:20] LABS: Basophils # (auto) 0.02 K/uL (0.00-0.20); Basophils % (auto) 0.2 %; Immature Granulocytes % (auto) 1.1 %; Lymphocytes % (auto) 10.8 %; Monocytes # (auto) 0.65 K/uL (0.11-0.59); Neutrophils # (auto) 7.51 K/uL (1.40-6.50); Neutrophils % (auto) 80.9 %; Polychromasia 1+
[2024-02-03] MEDS: UMECLIDINIUM BROMIDE 62.5MCG/BLISTER 7 PUFFS/INHALER INH SCH (09:45)
--- NOTE | 2024-02-03 10:47 | Pulmonology Progress Note ---
Date of Service February 03, 2024 Assessment & Plan (1) Acute viral bronchiolitis: (2) Acute and chronic respiratory failure with hypercapnia: (3) Rhinovirus: (4) Acute exacerbation of chronic obstructive airways disease: Plan Impression: 73-year-old female with presumed COPD although also likely has a component of restrictive lung disease due to body habitus, spine abnormalities, and prior lung resection admitted with hypercarbic respiratory failure likely precipitated by polypharmacy and viral bronchiolitis. Recommendations: Continue with IV methylprednisone, nebulized budesonide and formoterol. Will give albuterol treatment now given ongoing wheezing. Continue with azithromycin for total 5 days. Will need outpatient follow-up with her director construction services to assess for Th2 mediated asthma/COPD. BiPAP nightly. Discussed plan of care with RT and bedside RN. Admission and Anticipated Discharge Date Admission Date: February 01, 2024 Subjective Patient continues to have significant shortness of breath and is requiring high flow oxygen. She has been weaned off BiPAP. She does endorse a cough. She has shortness of breath with any exertion. Review of Systems Review of Systems: All systems reviewed & are unremarkable except as noted in HPI & below Physical Exam Constitutional: + obese; no acute distress Neck: trachea midline, no thyromegaly Respiratory: no respiratory distress, no labored breathing and not tachypneic Auscultation: + diminished lung sounds and + wheezes; no crackles High flow oxygen in place. Cardiovascular: RRR, no murmur, no edema Gastrointestinal (Abdomen): normal bowel sounds, soft, nontender, no hepatosplenomegaly Musculoskeletal: Extremities: extremities normal to inspection Skin: no rashes, warm and dry Neurologic: Patient response to verbal and tactile stimulus Lymphatic: no cervical lymphadenopathy Results & Data Results & Data Vital Signs (Past 12 Hours) Vital Signs Temp Pulse Pulse Resp BP Pulse Ox O2 Del Method 02/03/24 09:24 106 H 26 H 96 High Flow Nasal Cannula 02/03/24 07:43 36.4 C L 101 H 34 H 153/79 H 99 BiPAP 02/03/24 07:25 80 24 94 02/03/24 07:24 84 26 H 94 BiPAP 02/03/24 03:56 87 26 H 96 02/03/24 03:56 86 26 H 94 BiPAP 02/03/24 03:12 36.9 C 90 27 H 148/86 H 97 BiPAP 02/03/24 00:00 114 H 02/02/24 23:58 112 H 30 H 94 O2 Flow Rate FiO2 02/03/24 09:24 35 40 02/03/24 07:43 02/03/24 07:25 30 02/03/24 07:24 32 02/03/24 03:56 30 02/03/24 03:56 30 02/03/24 03:12 02/03/24 00:00 02/02/24 23:58 35 PG Care Time/CCT Total # of Minutes Spent Total Time Spent with Patient: Total time spent is greater than 50% in coordination of care (as documented) at patient's floor/unit and/or counseling patient: Coding Level of Care Code 22764 SUB INP/OBS CARE 2/35MIN Diagnoses Acute viral bronchiolitis J21.8; B97.89 Acute and chronic respiratory failure with hypercapnia J96.22 Rhinovirus B34.8 Acute exacerbation of chronic obstructive airways disease J44.1
[2024-02-03] MEDS: ALBUTEROL 0.083% NEBU SOLN 3 ML VIAL NEB STA (10:50)
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
[2024-02-04] MEDS: FUROSEMIDE 40 MG/4 ML VIAL IV ONE (08:06)
[2024-02-04 08:56] LABS: Base Excess VBG 18.3 mEq/L; HCO3 VBG 47 mmol/L; Oxygen Saturation VBG < 60.0 %; PCO2 VBG 76 mmHg (38-50); PO2 VBG 36 mmHg
[2024-02-04 10:15] LABS: iSTAT Arterial Blood Gas HCO3 35 meg/L (19-24); iSTAT Arterial Blood Gas pCO2 83 mmHg (35-46); iSTAT Arterial Blood Gas pH 7.24 (7.35-7.45); iSTAT Arterial Blood Gas pO2 80 mmHg (80-95); iSTAT Carbon Dioxide 38 mmol/L (24-31); iSTAT Hematocrit 38 % (37-47); iSTAT Hemoglobin 12.9 g/dl (12.0-16.0); iSTAT Potassium 3.6 mmol/L (3.3-5.0); iSTAT Sodium 136 mmol/L (135-144)
--- NOTE | 2024-02-04 12:51 | Pulmonology Progress Note ---
Date of Service February 04, 2024 Assessment & Plan (1) Acute viral bronchiolitis: (2) Acute and chronic respiratory failure with hypercapnia: (3) Rhinovirus: (4) Acute exacerbation of chronic obstructive airways disease: Plan Impression: 73-year-old female with presumed COPD although also likely has a component of restrictive lung disease due to body habitus, spine abnormalities, and prior lung resection admitted with hypercarbic respiratory failure likely precipitated by polypharmacy and viral bronchiolitis. Recommendations: Continue with IV methylprednisone, nebulized budesonide and formoterol. Continue with azithromycin for total 5 days. Will need outpatient follow-up with her micro paleontologist to assess for Th2 mediated asthma/COPD. Will obtain echo to assess LV function and evaluate for cor pulmonale. BiPAP nightly which apparently patient refused. Discussed plan of care with RT and bedside RN. Admission and Anticipated Discharge Date Admission Date: February 01, 2024 Subjective No major changes today. Patient remains anxious with short of breath with minimal exertion. Review of Systems Review of Systems: All systems reviewed & are unremarkable except as noted in HPI & below Physical Exam Physical Exam: Lying in bed without any acute distress Constitutional: well developed, well nourished, + ill appearing and + obese Eyes: PERRL, conjunctivae normal, anicteric sclerae ENMT: external ear and nose normal, oropharynx normal Neck: trachea midline, no thyromegaly Respiratory: no respiratory distress Auscultation: + diminished lung sounds and + crackles (Minimal bibasilar crackles) Cardiovascular: Rate/Rhythm: regular rate, regular rhythm and + tachycardic Heart Sounds: normal S1 and normal S2; no murmur Extremities: + edema (Trace edema bilaterally) Gastrointestinal (Abdomen): Inspection/Auscultation: normal bowel sounds; abdomen not distended Percussion/Palpation: abdomen soft; abdomen nontender Musculoskeletal: No acute arthritis involving any of the joints Neurologic: normal touch/pain/proprioception and moves all extremities; no focal motor deficits Lymphatic: no cervical or axillary lymphadenopathy Results & Data Results & Data Vital Signs (Past 12 Hours) Vital Signs Temp Pulse Resp BP Pulse Ox O2 Del Method O2 Flow Rate 02/04/24 11:22 98 H 24 89 L High Flow Nasal Cannula 25 02/04/24 11:00 36.9 C 98 H 20 155/71 H 94 High Flow Nasal Cannula 30 02/04/24 08:00 36.8 C 97 H 18 162/71 H 93 High Flow Nasal Cannula 30 02/04/24 07:33 84 28 H 93 High Flow Nasal Cannula 30 02/04/24 03:16 83 91 High Flow Nasal Cannula 30 02/04/24 02:10 37.0 C 94 H 24 156/81 H 92 High Flow Nasal Cannula FiO2 02/04/24 11:22 35 02/04/24 11:00 02/04/24 08:00 02/04/24 07:33 40 02/04/24 03:16 40 02/04/24 02:10 PG Care Time/CCT Total # of Minutes Spent Total Time Spent with Patient: Total time spent is greater than 50% in coordination of care (as documented) at patient's floor/unit and/or counseling patient: Coding Level of Care Code 20947 SUB INP/OBS CARE 3/50MIN Diagnoses Acute viral bronchiolitis J21.8; B97.89 Acute and chronic respiratory failure with hypercapnia J96.22 Rhinovirus B34.8 Acute exacerbation of chronic obstructive airways disease J44.1
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
[2024-02-05 06:39] LABS: Basophils # (auto) 0.04 K/uL (0.00-0.20); Basophils % (auto) 0.4 %; Hematocrit (blood only) 38.5 % (37.0-47.0); Hemoglobin 12.4 g/dl (12.0-16.0); Immature Granulocytes # (auto) 0.46 K/uL (0.01-0.20); Immature Granulocytes % (auto) 4.1 %; Lymphocytes # (auto) 1.05 K/uL (1.20-3.40); Lymphocytes % (auto) 9.4 %; Mean Corpuscular Hemoglobin 30.2 pg (25.0-34.0); Mean Corpuscular Hgb Conc 32.2 g/dL (32.0-36.0); Mean Corpuscular Volume 93.9 fL (80.0-100.0); Mean Platelet Volume 9.2 fL (9.4-12.4); Monocytes # (auto) 0.73 K/uL (0.11-0.59); Monocytes % (auto) 6.5 %; Neutrophils # (auto) 8.92 K/uL (1.40-6.50); Neutrophils % (auto) 79.6 %; Platelet Count 318 K/uL (130-400); RDW Coefficient of Variation 12.4 % (11.5-14.5); RDW Standard Deviation 42.9 fL (36.4-46.3)
[2024-02-05 06:56] LABS: Calcium 9.4 mg/dl (8.6-10.3); Est GFR (African American) 78.8 ml/min; Magnesium 2.2 mg/dl (1.7-2.4); Phosphorus 3.9 mg/dl (2.5-4.9); Potassium 4.1 mmol/L (3.5-5.1)
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
--- NOTE | 2024-02-05 19:59 | Pulmonology Progress Note ---
Date of Service February 05, 2024 Assessment & Plan (1) Acute viral bronchiolitis: (2) Acute and chronic respiratory failure with hypercapnia: (3) Rhinovirus: (4) Acute exacerbation of chronic obstructive airways disease: Plan Impression: 73-year-old female with presumed COPD although also likely has a component of restrictive lung disease due to body habitus, spine abnormalities, and prior lung resection admitted with hypercarbic respiratory failure likely precipitated by polypharmacy and viral bronchiolitis. Recommendations: switch to po prednusone. continue nebulized budesonide and formoterol. Continue with azithromycin for total 5 days. Will need outpatient follow-up with her mechanical systems control engineer to assess for Th2 mediated asthma/COPD. echo without major abnormalities. BiPAP nightly and prn. recommend snf on d/c Admission and Anticipated Discharge Date Admission Date: February 01, 2024 Subjective no new issues. bipap used prn. Review of Systems Review of Systems: All systems reviewed & are unremarkable except as noted in HPI & below Physical Exam Physical Exam: Lying in bed without any acute distress Constitutional: well developed, well nourished, + ill appearing and + obese Eyes: PERRL, conjunctivae normal, anicteric sclerae ENMT: external ear and nose normal, oropharynx normal Neck: trachea midline, no thyromegaly Respiratory: no respiratory distress Auscultation: + diminished lung sounds and + crackles (Minimal bibasilar crackles) Cardiovascular: Rate/Rhythm: regular rate, regular rhythm and + tachycardic Heart Sounds: normal S1 and normal S2; no murmur Extremities: + edema (Trace edema bilaterally) Gastrointestinal (Abdomen): Inspection/Auscultation: normal bowel sounds; abdomen not distended Percussion/Palpation: abdomen soft; abdomen nontender Musculoskeletal: No acute arthritis involving any of the joints Neurologic: normal touch/pain/proprioception and moves all extremities; no focal motor deficits Lymphatic: no cervical or axillary lymphadenopathy Results & Data Results & Data Vital Signs (Past 12 Hours) Vital Signs Temp Pulse Resp BP Pulse Ox Pulse Ox Pulse Ox 02/05/24 19:52 36.9 C 97 H 18 132/83 95 02/05/24 19:36 92 H 18 94 02/05/24 15:19 95 92 02/05/24 14:04 100 H 16 96 02/05/24 10:47 92 H 22 94 Pulse Ox O2 Del Method O2 Flow Rate O2 Flow Rate O2 Flow Rate O2 Flow Rate 02/05/24 19:52 Nasal Cannula 6 02/05/24 19:36 Nasal Cannula 6 02/05/24 15:19 86 L 6 6 6 02/05/24 14:04 Nasal Cannula 6 02/05/24 10:47 Nasal Cannula 6 PG Care Time/CCT Total # of Minutes Spent Total Time Spent with Patient: Total time spent is greater than 50% in coordination of care (as documented) at patient's floor/unit and/or counseling patient: Coding Level of Care Code 62705 SUB INP/OBS CARE 10/03MIN Diagnoses Acute viral bronchiolitis J21.8; B97.89 Acute and chronic respiratory failure with hypercapnia J96.22 Rhinovirus B34.8 Acute exacerbation of chronic obstructive airways disease J44.1
[2024-02-06 07:38] LABS: Hematocrit (blood only) 39.5 % (37.0-47.0); Hemoglobin 12.5 g/dl (12.0-16.0); Mean Corpuscular Hgb Conc 31.6 g/dL (32.0-36.0); Mean Corpuscular Volume 94.7 fL (80.0-100.0); Mean Platelet Volume 9.2 fL (9.4-12.4); Platelet Count 323 K/uL (130-400); RDW Coefficient of Variation 12.5 % (11.5-14.5); RDW Standard Deviation 43.7 fL (36.4-46.3); Red Blood Count 4.17 M/uL (4.20-5.40); White Blood Count 11.34 K/ul (4.8-10.8)
--- NOTE | 2024-02-06 07:55 | XRay Report ---
XR chest 1V portable HISTORY: Pneumonia COMPARISON: Chest CTA 02/01/2024. FINDINGS: Extensive thoracic fusion hardware again noted. No pneumothorax. Postoperative changes agai n noted within the right upper lobe. Small patchy bibasilar densities persist. Emphysema is noted. No acute fractures. Degenerative changes within the left shoulder. The heart is stable in size. No evid ence for pulmonary edema. IMPRESSION: 1. Small patchy bibasilar densities persist. This may represent atelectasis or a pneumonia. 2. Postoperative changes again noted within the right upper lobe. ACT 112: Negative or not required by law. Electronically signed by: Imtiaz Dunn M.D. 02/06/2024 7:54 AM
[2024-02-06 08:00] LABS: BUN Creatinine Ratio 42.5 (10-20); Calcium 8.9 mg/dl (8.6-10.3); Est GFR (Non-African American) 74.2 ml/min; Magnesium 2.2 mg/dl (1.7-2.4); Potassium 4.2 mmol/L (3.5-5.1)
[2024-02-06] MEDS: AZITHROMYCIN 250 MG TAB PO ONE (10:00)
[2024-02-06] MEDS: predniSONE 20 MG TAB PO SCH (10:00)
--- NOTE | 2024-02-06 11:54 | Pulmonology Progress Note ---
Date of Service February 06, 2024 Assessment & Plan (1) Acute viral bronchiolitis: (2) Acute and chronic respiratory failure with hypercapnia: (3) Rhinovirus: (4) Acute exacerbation of chronic obstructive airways disease: Plan Impression: 73-year-old female with presumed COPD although also likely has a component of restrictive lung disease due to body habitus, spine abnormalities, and prior lung resection admitted with hypercarbic respiratory failure likely precipitated by polypharmacy and viral bronchiolitis. Recommendations: Complete additional 5-day course of prednisone. Continue nebulized budesonide and formoterol while in the hospital. Will complete 5 days with this of azithromycin. Upon discharge, recommend ICS/LABA/LAMA inhaler. Will need outpatient follow-up with her education site manager to assess for Th2 mediated asthma/COPD. echo without major abnormalities. BiPAP nightly and prn. Chest x-ray from today personally reviewed with evidence of patchy bibasilar densities. Probable atelectasis versus aspiration. Recommend aggressive use of I-S and flutter valve. recommend snf on d/c given significant deconditioning. Stable for dismissal from the hospital from a pulmonary perspective. Discussed with bedside RN. Pulmonary to sign off at this time. No further recommendations. Please call with questions. Thank you for the consult. Admission and Anticipated Discharge Date Admission Date: February 01, 2024 Subjective Dyspnea improving. Patient complaining of chronic back pain. Also complains that difficult to ambulate around the room. Discussed with bedside nurse who indicates the patient has numerous vague complaints throughout the day Review of Systems Review of Systems: All systems reviewed & are unremarkable except as noted in HPI & below Physical Exam Physical Exam: Lying in bed without any acute distress Constitutional: well developed, well nourished, + ill appearing and + obese Eyes: PERRL, conjunctivae normal, anicteric sclerae ENMT: external ear and nose normal, oropharynx normal Neck: trachea midline, no thyromegaly Respiratory: no respiratory distress Auscultation: + diminished lung sounds and + crackles (Minimal bibasilar crackles) Cardiovascular: Rate/Rhythm: regular rate, regular rhythm and + tachycardic Heart Sounds: normal S1 and normal S2; no murmur Extremities: + edema (Trace edema bilaterally) Gastrointestinal (Abdomen): Inspection/Auscultation: normal bowel sounds; abdomen not distended Percussion/Palpation: abdomen soft; abdomen nontender Musculoskeletal: No acute arthritis involving any of the joints Neurologic: normal touch/pain/proprioception and moves all extremities; no focal motor deficits Lymphatic: no cervical or axillary lymphadenopathy Results & Data Results & Data Vital Signs (Past 12 Hours) Vital Signs Temp Pulse Pulse Resp BP Pulse Ox O2 Del Method 02/06/24 11:06 37.0 C 94 H 21 143/77 H 94 Nasal Cannula 02/06/24 08:20 37.1 C 102 H 19 150/79 H 90 Nasal Cannula 02/06/24 08:00 110 H 02/06/24 07:19 104 H 15 95 Nasal Cannula 02/06/24 03:57 36.1 C L 108 H 24 157/95 H 96 BiPAP 02/06/24 03:35 86 24 96 02/06/24 03:25 86 25 H 96 BiPAP 02/06/24 00:04 104 H 25 H 95 02/05/24 23:57 104 H 24 96 O2 Flow Rate FiO2 02/06/24 11:06 6 02/06/24 08:20 0.5 02/06/24 08:00 02/06/24 07:19 6 02/06/24 03:57 02/06/24 03:35 40 02/06/24 03:25 35 02/06/24 00:04 40 02/05/24 23:57 PG Care Time/CCT Total # of Minutes Spent Total Time Spent with Patient: Total time spent is greater than 50% in coordination of care (as documented) at patient's floor/unit and/or counseling patient: Coding Level of Care Code 42645 SUB INP/OBS CARE Diagnoses Acute viral bronchiolitis J21.8; B97.89 Acute and chronic respiratory failure with hypercapnia J96.22 Rhinovirus B34.8 Acute exacerbation of chronic obstructive airways disease J44.1
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
[2024-02-07 06:58] LABS: Creatinine Clr Calc Pharmacy 61.9 ml/min; Est GFR (African American) 87.3 ml/min; Est GFR (Non-African American) 75.3 ml/min; Potassium 4.2 mmol/L (3.5-5.1)
[2024-02-07] MEDS: oxyCODONE HCL IR 5 MG TAB (IMMEDIATE RELEASE) PO PRN (11:14)
[2024-02-07] MEDS: DICLOFENAC SOD 1% GEL 100 GM TUBE EXT SCH (11:26)
[2024-02-07] MEDS ORDERED: ALBUT/IPRATROP 3MG/0.5MG NEB 3 ML VIAL NEB PRN (15:12)
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
[2024-02-08 06:33] LABS: Hematocrit (blood only) 38.4 % (37.0-47.0); Hemoglobin 12.2 g/dl (12.0-16.0); Mean Corpuscular Hemoglobin 29.8 pg (25.0-34.0); Mean Corpuscular Hgb Conc 31.8 g/dL (32.0-36.0); Mean Corpuscular Volume 93.7 fL (80.0-100.0); Mean Platelet Volume 9.4 fL (9.4-12.4); Platelet Count 272 K/uL (130-400); RDW Coefficient of Variation 12.1 % (11.5-14.5)
[2024-02-08 07:04] LABS: BUN Creatinine Ratio 42.7 (10-20); Calcium 8.7 mg/dl (8.6-10.3); Creatinine Clr Calc Pharmacy 59.7 ml/min; Est GFR (African American) 83.4 ml/min; Potassium 4.4 mmol/L (3.5-5.1)
[2024-02-08] MEDS: predniSONE 10 MG TABLET PO SCH (09:24)
[2024-02-08] MEDS: oxyCODONE HCL IR 5 MG TAB (IMMEDIATE RELEASE) PO PRN (14:30)
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
[2024-02-08] MEDS: ACETAMINOPHEN 1,000 MG/100 ML VIAL IV PRN (20:05)
[2024-02-09 06:52] LABS: Hematocrit (blood only) 37.9 % (37.0-47.0); Hemoglobin 12.2 g/dl (12.0-16.0); Mean Corpuscular Hemoglobin 29.9 pg (25.0-34.0); Mean Corpuscular Hgb Conc 32.2 g/dL (32.0-36.0); Mean Corpuscular Volume 92.9 fL (80.0-100.0); Mean Platelet Volume 9.5 fL (9.4-12.4); Platelet Count 276 K/uL (130-400); RDW Coefficient of Variation 12.2 % (11.5-14.5); RDW Standard Deviation 41.6 fL (36.4-46.3); Red Blood Count 4.08 M/uL (4.20-5.40); White Blood Count 11.79 K/ul (4.8-10.8)
[2024-02-09 08:04] LABS: BUN Creatinine Ratio 41.2 (10-20); Calcium 8.4 mg/dl (8.6-10.3); Creatinine Clr Calc Pharmacy 57.6 ml/min; Est GFR (African American) 79.9 ml/min; Est GFR (Non-African American) 68.9 ml/min; Potassium 4.1 mmol/L (3.5-5.1)
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
[2024-02-10] MEDS: predniSONE 20 MG TAB PO SCH (08:15)
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
[2024-02-11] MEDS ORDERED: predniSONE 10 MG TABLET PO SCH (09:00)
== END 2024-02-10 18:14 | DRG 189 ==
LOC: ED 18:48 → 2E 20:59 → SUATTDRO 20:59 → 2E 22:20 → 3E 02-08 15:44